=== PATIENT | male | born 1940 | race Caucasian/White ===

== ENCOUNTER 2016-11-14 11:15 | Outpatient (RCR) | payer MEDICARE, OTHER ==
--- NOTE | 2016-10-22 13:32 | PT/OT/ST INITIAL EVALUATION ---
Department of Health and Human Services Form Approved [facility] Care Financing Administration OMB No. [id number] PLAN OF CARE/ASSESSMENT FOR OUTPATIENT REHABILITATION (Complete for Initial Claims Only) 1. LAST NAME Jayme FIRST NAME Robby Lozano 2. ACC # [id number] 3. [id number] 4. PROVIDER NO. [id number] 5. TYPE: X PT 6. PRIOR THERAPY (Same condition) None 7. PRIMARY DX Status post right total knee arthroplasty 8. SECONDARY DX Limited range of motion, strength and stabilization at right knee. 9. ONSET DATE 10/01/2016 10. REFERRAL DATE 10/17/2016 11. SOC. DATE/TIME 10/21/2016 14:30 12. PRIOR LEVEL OF FUNCTION; PERTINENT HISTORY (Prior therapy results, reason for referral.) S: The patient was referred to physical therapy by Dr. Vasquez with the diagnosis of right total knee arthroplasty. The patient had undergone a right total knee replacement on 10/01/[address] Dorman in [place]. The patient then underwent rehab for [address] [facility]. The patient was discharged from the nursing facility on Friday to home with . He reports that he discontinued using his walker yesterday and started using a single-point cane today. The patient reports having pain at his right knee for several years. Occupational and social history: The patient is retired. He enjoys exercising and riding motorcycles. Overall health rating: Rates overall health as good. Current pain rating is 4/10. Past medical history includes surgery to his neck, back, shoulders, right knee and left ankle. The patient's goal for therapy is to gain strength at the knee. 13. INITIAL ASSESSMENT/SAFETY PRECAUTIONS/MEDICAL COMPLICATIONS (Level of function at start of care. Be specific, use objective measures, list problems.) O: APPEARANCE: The patient is a 76-year-old male. He ambulates into physical therapy with step-two gait pattern with a single-point cane. Upon appearance of right knee the patient has it wrapped with an Cali wrap. Upon removal of the wrap, the incision looks healthy and dry, except for a small 2 cm area at mid incision that still has mild drainage. No odor is noted. No redness is noted. GIRTH MEASUREMENT: Right knee medial joint line was 47.1 cm, left 43.7 cm. RANGE OF MOTION/FLEXIBILITY: Right knee -7 degrees from terminal knee extension to 140 degrees flexion. Left knee 3 degrees hyperextension to 125 degrees flexion. Right knee the patient was able to perform straight leg raise independently, however, he did demonstrate lack of terminal knee extension. Quad firing was fair on the right. STRENGTH: Left hip and knee strength were 5/5 manual muscle test. TODAY'S TREATMENT: Included initial evaluation followed by instruction of home exercise program. The patient was instructed on gait training with single-point cane, emphasizing heel-to-toe gait pattern. The treatment was ended with vasopneumatic cold compression to the patient's right knee for 15 minutes. 14. INITIAL POC: (Specify procedures, modalities, short and exterminator termite goals) A: The patient is status post right total knee arthroplasty. PROGNOSIS: The patient is a good candidate for physical therapy to regain range of motion, flexibility, stabilization and strength at right knee. GOALS: 1. The patient to be compliant with home exercise program in 2 weeks. 2. The patient to demonstrate -5 degrees or less from terminal knee extension in 3 weeks. 3. The patient to ambulate with good stability and balance without assistive device and minimal limp in 4 weeks. 4. The patient to attain 115 degrees flexion at right knee in 4 weeks. 5. The patient to be able to ascend and descend stairs, alternating steps with good stability and control in 6 weeks. 6. The patient to report that he is able to perform normal daily activities with a pain rating of 0 to 1/10 at his right knee in 6 weeks. PLAN: The patient will be seen 3 times a week over the next 2 weeks. We will then decrease frequency according to patient's progress. Plan on continuing therapy for 6 weeks. We will progress the patient with range of motion, flexibility, stabilization, and strengthening activities. Modalities and manual therapy may be used as necessary to decrease pain and inflammation. 15. FUNCTIONAL LEVEL (End of claim period) 16. PHYSICIAN SIGNATURE ? ON FILE OR ENTER HERE: 17. DATE: I certify the need for these services furnished under this plan of care and if for partial hospitalization. 18. CERTIFICATION FROM THROUGH FORM [id number]
[~2016-11-14 11:15] MED LIST: ALPR1TAB7 PO; AMAN100T PO; ASPI-586 PO; ATOR40TA59 PO; BICA50TA4 PO; BISA-65 PO; BISA10SU6 RC; CHOL100045 PO; CYAN10006 PO; FLC1T PO; FLUD0.1T PO; FOLI0.4T4 PO; FURO20TA4 PO; GLYC5.6S RC; IMIP50TA4 PO; LEVO1CAP PO; LEVO40CA PO; LORA0.5T PO; LVCR25100 PO; MAG360OR57 PO; MAGN800O PO; OLN10T PO; OMG1KC PO; OXCA150T PO; OXYC1TAB8 PO; POLY17PO6 PO; PRAM0.12 GT; PRAV20TA GT; PSYL1PAC10 PO; SPIR25TA PO; TRM50T PO; WRF5T PO; [UNRECOGNIZED DRUG - CODE] TP
== END 2016-12-03 10:00 | disposition home or self-care (01) ==
LOC: PT 11:15
PROVIDERS: ATTEND Internal Medicine
DX: Z47.1 Aftercare following joint replacement surgery (principal); G89.18 Other acute postprocedural pain; M25.661 Stiffness of right knee, not elsewhere classified
CPT/HCPCS: 97001; 97016; 97110; 97112; 97116; 97140; G8978; G8979; G8980

== ENCOUNTER → 2016-11-25 | Outpatient (CLI) | payer MEDICARE, OTHER ==
[2016-11-25 10:43] LABS: BASOPHILS % (AUTO) 0 % (0-2); EOSINOPHILS # (AUTO) 0.1 10^3uL; EOSINOPHILS % (AUTO) 2 % (0-4); LYMPHOCYTES # (AUTO) 1.4 X10^3; MEAN CORPUSCULAR HEMOGLOBIN 31.1 PG (26.0-34.0); MEAN CORPUSCULAR HGB CONC 32.9 g/dL (31.0-37.0); MEAN CORPUSCULAR VOLUME 95 FL (80-100); MEAN PLATELET VOLUME 9.3 FL (6.0-9.5); MONOCYTES # (AUTO) 0.3 X10^3; MONOCYTES % (AUTO) 5 % (3-11); NEUTROPHILS # (AUTO) 3.8 X10^3; NEUTROPHILS % (AUTO) 67 % (51-67); PLATELET COUNT 211 10^3uL (150-450)
[2016-11-25 11:23] LABS: ALBUMIN 4.3 g/dL (3.4-5.0); ANION GAP 18.2 MEQ/L (3-15); TOTAL PROTEIN 7.4 g/dL (6.4-8.5)
== END ==
LOC: LAB 10:22
PROVIDERS: ATTEND Internal Medicine
DX: Z00.00 Encounter for general adult medical examination without abnormal findings (principal); E03.8 Other specified hypothyroidism; E78.4 Other hyperlipidemia; E11.9 Type 2 diabetes mellitus without complications; I10 Essential (primary) hypertension; Z79.01 Long term (current) use of anticoagulants; R74.8 Abnormal levels of other serum enzymes
CPT/HCPCS: 36415; 80053; 80061; 82043; 82977; 83036; 84443; 85025; 85610; 86803

== ENCOUNTER → 2017-01-28 | Outpatient (CLI) | payer MEDICARE, OTHER | LOC: RT 14:48 | PROVIDERS: ATTEND Internal Medicine | DX: G47.14 Hypersomnia due to medical condition (principal); I10 Essential (primary) hypertension | CPT/HCPCS: 94762 ==